=== PATIENT | female | born 1940 | race Caucasian/White ===

== ENCOUNTER 2019-09-27 16:34 | Inpatient (IN) | payer MEDICARE, OTHER ==
[~2019-09-27] VITALS: Ht 162.6 cm; Wt 70.3 kg
[2019-09-27] MEDS ORDERED: TYLENOL EXTRA500 MG PO (16:36)
[2019-09-27] MEDS ORDERED: ATORVASTATIN CA80 MG PO (16:37)
[2019-09-27] MEDS ORDERED: ASA81BEC PO (16:37)
[2019-09-27] MEDS ORDERED: METRONIDAZOLE500 M4 PO (16:37)
[2019-09-27] MEDS ORDERED: CALCIUM 600 +1 EA17 PO (16:38)
[2019-09-27] MEDS ORDERED: VITAMIN B-121000 MC2 PO (16:38)
[2019-09-27] MEDS ORDERED: PROLIA60 MG/1 ML SUBQ (16:39)
[2019-09-27] MEDS ORDERED: NEURONTIN 300M300 M2 PO (16:40)
[2019-09-27] MEDS ORDERED: COLACE100 MG PO (16:40)
[2019-09-27] MEDS ORDERED: LEVO-T75 MCG PO (16:41)
[2019-09-27] MEDS ORDERED: GLUCAGON HC1 MG/1 ML IM (16:41)
[2019-09-27] MEDS ORDERED: ISOSORBIDE MONO60 M1 PO (16:41)
[2019-09-27] MEDS ORDERED: METOCLOPRAMIDE10 MG PO (16:42)
[2019-09-27] MEDS ORDERED: TOPROL XL50 MG PO (16:42)
[2019-09-27] MEDS ORDERED: MAGNESIUM250 M1 PO (16:42)
[2019-09-27] MEDS ORDERED: MIRALAX119 GM PO ×2 (16:43→16:44)
[2019-09-27] MEDS ORDERED: OMEPRAZOLE40 MG PO (16:43)
[2019-09-27] MEDS ORDERED: LANTUS SUBQ (16:51)
[2019-09-27] MEDS ORDERED: HUMALOG100 UNIT/1 SUBQ (16:52)
[2019-09-27] MEDS ORDERED: THERAGRAN-M PR1 EAC1 PO (16:54)
[2019-09-27] MEDS ORDERED: ZANAFLEX4 M2 PO (16:55)
[2019-09-27] MEDS ORDERED: LISINOPRIL PO (17:12)
[2019-09-27 18:42] VITALS: BP 175/70
[2019-09-27 20:10] VITALS: BP 167/70
[2019-09-27 20:22] VITALS: BP 155/46
[2019-09-27 20:26] VITALS: BP 104/59
[2019-09-28 04:51] LABS: CALCIUM 7.6 mg/dL (8.5-10.1); CREATININE 1.4 mg/dL (0.6-1.3)
[2019-09-28 04:52] LABS: HEMATOCRIT 32.9 % (37.0-47.0); HEMOGLOBIN 11.2 gm/dL (12.0-15.0); MCH 30.9 pg (26.0-34.0); MPV 9.3 fl. (7.2-11.1); RBC 3.62 mil/uL (4.20-5.00); RDW-CV 13.8 % (10.5-14.5); WBC 5.5 thou/uL (4.0-11.0)
[2019-09-28 08:00] VITALS: BP 191/77
[2019-09-28 13:00] VITALS: BP 122/53
[2019-09-28 20:18] VITALS: BP 92/48
[2019-09-29 01:30] VITALS: BP 103/46
[2019-09-29 08:00] VITALS: BP 103/51
[2019-09-29 19:00] VITALS: BP 137/53
[2019-09-30 04:04] LABS: HEMATOCRIT 33.4 % (37.0-47.0); HEMOGLOBIN 11.4 gm/dL (12.0-15.0); MCH 31.2 pg (26.0-34.0); MCHC 34.3 g/dL (28.0-37.0); MCV 91.1 fL (80.0-100.0); MPV 8.8 fl. (7.2-11.1); RBC 3.66 mil/uL (4.20-5.00); RDW-CV 14.1 % (10.5-14.5); WBC 5.8 thou/uL (4.0-11.0)
[2019-09-30 04:21] LABS: CALCIUM 8.3 mg/dL (8.5-10.1); CREATININE 1.4 mg/dL (0.6-1.3)
[2019-09-30 07:00] VITALS: BP 128/45
[2019-09-30 21:00] VITALS: BP 150/64
[2019-10-01 08:47] VITALS: BP 134/56
[2019-10-01 19:00] VITALS: BP 162/52
[2019-10-02 08:47] VITALS: BP 162/54
[2019-10-02 20:14] VITALS: BP 159/57
[2019-10-03 08:00] VITALS: BP 149/58
[2019-10-03 20:09] VITALS: BP 156/60
[2019-10-04 07:00] VITALS: BP 166/63
[2019-10-04 20:13] VITALS: BP 132/56
[2019-10-05 07:00] VITALS: BP 175/61
[2019-10-05 20:00] VITALS: BP 95/45
[2019-10-05 21:00] VITALS: BP 121/56
[2019-10-06 07:30] VITALS: BP 107/36
[2019-10-06 19:00] VITALS: BP 129/51
[2019-10-07 04:37] LABS: HEMATOCRIT 31.6 % (37.0-47.0); HEMOGLOBIN 10.8 gm/dL (12.0-15.0); MCH 31.2 pg (26.0-34.0); MCHC 34.2 g/dL (28.0-37.0); MCV 91.3 fL (80.0-100.0); MPV 8.3 fl. (7.2-11.1); RBC 3.46 mil/uL (4.20-5.00); RDW-CV 14.4 % (10.5-14.5); WBC 6.9 thou/uL (4.0-11.0)
[2019-10-07 04:57] LABS: CALCIUM 8.2 mg/dL (8.5-10.1); CREATININE 1.9 mg/dL (0.6-1.3); MAGNESIUM 2.4 mg/dL (1.8-2.4); POTASSIUM 4.7 mmol/L (3.5-5.1)
[2019-10-07 08:58] VITALS: BP 133/55
[2019-10-07 16:03] VITALS: BP 133/55
[2019-10-07 20:00] VITALS: BP 145/59
[2019-10-08 08:00] VITALS: BP 148/51
[2019-10-08 12:54] VITALS: BP 133/55
[2019-10-08 13:39] VITALS: BP 133/55
== END 2019-10-08 17:24 | disposition home health service (06) | DRG 947 ==
LOC: M.REH 16:34
PROVIDERS: Internal Medicine; ADMIT Physical Medicine & Rehabilitation; ATTEND Physical Medicine & Rehabilitation
DX: R53.81 Other malaise (principal); I21.4 Non-ST elevation (NSTEMI) myocardial infarction; E10.65 Type 1 diabetes mellitus with hyperglycemia; E10.319 Type 1 diabetes mellitus with unspecified diabetic retinopathy without macular edema; E10.42 Type 1 diabetes mellitus with diabetic polyneuropathy; I25.10 Atherosclerotic heart disease of native coronary artery without angina pectoris; E03.9 Hypothyroidism, unspecified; I12.9 Hypertensive chronic kidney disease with stage 1 through stage 4 chronic kidney disease, or unspecified chronic kidney disease; N18.3 Chronic kidney disease, stage 3 (moderate); E10.22 Type 1 diabetes mellitus with diabetic chronic kidney disease; I25.5 Ischemic cardiomyopathy; E10.649 Type 1 diabetes mellitus with hypoglycemia without coma; Z96.642 Presence of left artificial hip joint; Z88.1 Allergy status to other antibiotic agents; Z88.0 Allergy status to penicillin; Z88.2 Allergy status to sulfonamides; Z88.5 Allergy status to narcotic agent; Z85.3 Personal history of malignant neoplasm of breast; Z85.53 Personal history of malignant neoplasm of renal pelvis; I25.2 Old myocardial infarction; Z90.11 Acquired absence of right breast and nipple; Z91.041 Radiographic dye allergy status